=== PATIENT | female | born 1995 | race Caucasian/White ===

== ENCOUNTER 2017-08-15 00:34 | Emergency (ER) | payer SELFPAY ==
[2017-08-15 00:50] VITALS: BP 117/72; PULSE 70; TEMP 98.4; BMI 26.3
--- NOTE | 2017-08-15 00:56 | PDOC ---
History of Present Illness - General Chief Complaint: Vaginal Sxs Stated Complaint: VAGINAL DISCHARGE Time Seen by Provider: 08/15/17 00:38 History Source: Patient Exam Limitations: No Limitations - History of Present Illness Initial Comments: 08/15/17 00:52 This is a 22-year-old female who comes in complaining that she is having some vaginal spotting. Patient said that her period began several days ago with normal finishing at this time however she had some heavy bleeding this morning and her IUD came out. Patient said throughout the day she's had some lower abdominal cramping that is similar to period type cramping and some vaginal spotting. Patient is 1 para 1. Patient is otherwise healthy and denies any other complaints. PAST MEDICAL HISTORY: no significant history PAST SURGICAL HISTORY: no significant history FAMILY HISTORY: no pertinant history SOCIAL HISTORY: Pt lives with family and is employed. MEDICATIONS: reviewed ALLERGIES: As per nursing notes Review of Systems General: No fevers or chills, no weakness, no weight loss HEENT: No change in vision. No sore throat,. No ear pain CardioVascular: No chest pain or shortness of breath Respiratory:No cough, or wheezing. Gastrointestinal: no nausea, vomitting, diarrhea or constipation, No rectal bleeding Genitourinary: No dysuria, hematuria, or frequency Musculoskeletal: No joint or muscle pain or swelling Neurologic: No headache, vertigo, dizziness or loss of consciousness Psychiatric: nor depression Skin: No rashes or easy bruising Endocrine: no increased thirst or abnormal weight change Allergic: no skin or latex allergy All other systems reviewed and normal Exam: General: Well-nourished well-developed individual, no acute distress HEENT: Throat: Normal, tonsils normal, no erythema or exudate Neck: Supple, no meningeal signs, no lymphadenopathy Eyes::Pupils equal reactive and round, extraocular motion intact Abdomen: Soft, nondistended, normal bowel sounds, nontender to palpation diffusely Pelvic: There is a small amount of blood in the vaginal vault there is no cervical motion tenderness, there is no adnexal fullness or tenderness. Os is closed and there is minimal bleeding from the os. Extremities: Warm, dry, no cyanosis, clubbing, or edema Skin: No rashes Neuro: Alert and oriented x3, CN II - XII intact, nonfocal exam with normal strength, normal sensation, normal reflexes, normal gait, Psych: Normal mood and affect Urine test positive Patient had an ultrasound that showed no gestational sac some blood in the uterus some thickened endometrium. Possibilities included missed , very early . Assessment and plan: This is a 22-year-old female who comes in complaining of vaginal spotting and her IUD came out along with some material appearing to be tissue and blood clots. Patient test was positive. Patient had an ultrasound that showed missed versus very early . Patient's beta hCG was 21,000. However they've hCG was not available prior to patient being discharged. Patient was told on discharge and that most likely that the had passed. Patient was also told however there is a very small chance that it could be a very early and that it was important that she call in the morning for the result of her hormone and have it repeated in 2 days to make sure it was going down. Patient discharged home. Will follow-up with her OB doctor on Wednesday to have her beta hCG repeated 08/16/17 21:46 Patient's hCG was not available at the time of her discharge so I called her at home and discussed the hCG result with her. I gave her the normal ranges for hCG and . I reinforced to the patient that it was very important that she follow-up with her OB and make sure that the hormone is going down. I did discuss with her the slim possibility that if the hormone continues to rise that that she could still potentially have a viable . Patient confirmed that she will follow-up with her OB. Past History - Past Medical History Allergies/Adverse Reactions: Allergies Allergy/AdvReac Type Severity Reaction Status Date / Time No Known Allergies Allergy Verified 11/01/15 21:23 Home Medications: Ambulatory Orders NK [No Known Home Medication] 08/15/17 Asthma: Yes COPD: No - Suicide/Smoking/Psychosocial Hx Smoking History: Never smoked Hx Alcohol Use: No Drug/Substance Use Hx: No *Physical Exam - Vital Signs Last Vital Signs Temp Pulse Resp BP Pulse Ox 98.4 F 70 18 117/72 99 08/15/17 00:44 08/15/17 00:44 08/15/17 00:44 08/15/17 00:44 08/15/17 00:44 *DC/Admit/Observation/Transfer Diagnosis at time of Disposition: IUD failure, Pelvic cramping, Complete - Discharge Dispostion Disposition: HOME Condition at time of disposition: Stable Admit: No - Referrals - Patient Instructions Additional Instructions: It is important that you follow-up with an OB next week to make sure your hormone is decreasing. Return to the emergency department immediately with ANY new, persistent or worsening symptoms. Continue any medications as previously prescribed by your physician. You should follow up with your OB doctor as soon as possible regarding today's emergency department visit. . Please make sure your doctor reviews the results of your emergency evaluation. Thank you for coming to the Emergency Department today for your care. It was a pleasure to see you today. Please note that your evaluation is INCOMPLETE until you follow-up with your doctor. - Post Discharge Activity
[2017-08-15 01:24] LABS: URINE APPEARANCE CLEAR; URINE BILIRUBIN NEGATIVE (NEGATIVE); URINE BLOOD 3+ (NEGATIVE); URINE COLOR LT. YELLOW; URINE GLUCOSE (UA) NEGATIVE (NEGATIVE); URINE KETONE NEGATIVE (NEGATIVE); URINE NITRITE NEGATIVE (NEGATIVE); URINE PROTEIN NEGATIVE (NEGATIVE); URINE UROBILINOGEN 0.2 mg/dL (0.2-1.0)
[2017-08-15 01:31] LABS: URINE MUCUS RARE; URINE RBC 6 /hpf (0-3); URINE WBC 1 /hpf (3-5)
[2017-08-15 11:24] LABS: URINE LEUK ESTERASE Negative (NEGATIVE)
== END 2017-08-15 03:07 | disposition home or self-care (01) ==
LOC: FER 00:34
DX: O03.9 Complete or unspecified spontaneous abortion without complication (principal); R10.2 Pelvic and perineal pain; T83.39XA Other mechanical complication of intrauterine contraceptive device, initial encounter; J45.909 Unspecified asthma, uncomplicated
CPT/HCPCS: 36415; 76801-TC; 81003; 81015; 84702; 84703; 99281-25

== ENCOUNTER 2018-06-10 17:31 | Emergency (ER) | payer OTHER ==
[2018-06-10 17:49] VITALS: BP 108/63; PULSE 66; TEMP 98.5; BMI 26.5
--- NOTE | 2018-06-10 17:49 | PDOC ---
Rapid Medical Evaluation Time Seen by Provider: 06/10/18 17:45 Medical Evaluation: Allergies Allergy/AdvReac Type Severity Reaction Status Date / Time No Known Allergies Allergy Verified 11/01/15 21:23 06/10/18 17:45 I have performed a brief in-person evaluation of the patient The patient presents with a chief complaint of: dog bite to left hand today. Reports bitten by known dog on left 3rd, 4th and 5th finger. Pertinent physical exam findings are: NAD even and unlabored breathing left 3rd 4th and 5th finger swelling, unable to flex to a fist I have ordered the following: urine preg, xray of left hand The patient will proceed to the ED for further evaluation.
--- NOTE | 2018-06-10 18:20 | PDOC ---
History of Present Illness - General Chief Complaint: Bite Stated Complaint: DOGBITE Time Seen by Provider: 06/10/18 17:45 History Source: Patient Exam Limitations: No Limitations - History of Present Illness Initial Comments: CHIEF COMPLAINT: 23 y/o afebrile female with dog bite to left 3rd, 4th and 5th digits. HISTORY OF PRESENT ILLNESS: The patient was bitten by her sister's vadim. She states the dog is UTD on shots, including rabies. The bite happened a few hours ago. She states her 3rd and 4th digits are swollen and are hard to move. She denies fever, streaking. She states she is UTD on tetanus but hasn't had a shot in 5 years. She is concerned because she had a reaction to a shot when she was 3. Vital signs on arrival are within normal limits. REVIEW OF SYSTEMS: GENERAL/CONSTITUTIONAL: No fever/chills. No weakness. No weight change. MUSCULOSKELETAL: +pain with movement of left 3rd and 4th digits. No neck or back pain. SKIN: +dog bites to left 3rd and 4th fingers. NEUROLOGIC: No headache, vertigo, loss of consciousness, or loss of sensation. PHYSICAL EXAM: VITAL_SIGNS: within normal limits GENERAL_APPEARANCE: alert, cooperative, no obvious discomfort. MENTAL_STATUS: speech clear, oriented X 3, responds appropriately to questions. NEURO: motor intact and sensory intact in injured extremity. EXTREMITIES: good pulse in injured extremity. PIP joints of left 3rd and 4th digits edematous, ecchymotic and TTP. Decreased ROM of left 3rd and 4th PIP and DIP joints. bite gallagher to tips of 3rd and 4th digits of left hand. No erythema or streaking. SKIN: warm, dry, good color. Past History - Past Medical History Allergies/Adverse Reactions: Allergies Allergy/AdvReac Type Severity Reaction Status Date / Time No Known Allergies Allergy Verified 11/01/15 21:23 Home Medications: Ambulatory Orders Amox-Tr/K Cl [Augmentin - 875Mg Tablet] 1 tab PO BID #20 tablet 06/10/18 Asthma: Yes COPD: No - Immunization History Immunization Up to Date: Yes - Suicide/Smoking/Psychosocial Hx Smoking History: Never smoked Hx Alcohol Use: No Drug/Substance Use Hx: No *Physical Exam - Vital Signs Last Vital Signs Temp Pulse Resp BP Pulse Ox 98.5 F 66 16 108/63 99 06/10/18 17:46 06/10/18 17:46 06/10/18 17:46 06/10/18 17:46 06/10/18 17:46 Medical Decision Making - Medical Decision Making A/P: 23 y/o afebrile female with dog bites to left 3rd and 4th digits. Plan is as follows: 1. xray left fingers 2. Tetanus Xray left fingers IMPRESSION: Nondisplaced fracture at the base of the fourth mid phalanx with surrounding soft tissue swelling. Gave patient the results Put her finger in a finger splint Sent rx for augmentin to her pharmacy; instructed her to take entire 10 days Instructed her to call Dr. Hall on Wednesday to schedule follow up appointment. The patient verbalizes understanding of all instructions, has no further questions and is awaiting discharge. *DC/Admit/Observation/Transfer Diagnosis at time of Disposition: Dog bite of extremity - Discharge Dispostion Condition at time of disposition: Improved - Prescriptions Prescriptions: Amox-Tr/K Cl [Augmentin - 875Mg Tablet] 1 tab PO BID #20 tablet - Referrals Referrals: Leonela Dong [Primary Care Provider] - Can Hall MD [Staff Physician] - 3 days - Patient Instructions Printed Discharge Instructions: DI for Animal Bites, DI for Finger Fracture, How To Perform RICE (Rest, Ice, Compress, Elevate) Additional Instructions: Discharge Instructions: -You have a small broken bone in your finger -Please use the finger splint until follow up with Orthopedic doctor -Call Dr. Hall on Wednesday to schedule follow up appointment -A prescription for antibiotics has been sent to your pharmacy; please take entire 10 days -Apply ice to affected finger -Return to the ER with any worsening or concerning symptoms - Post Discharge Activity
[2018-06-10] MEDS ORDERED: DIPHTH,PERTUSS(ACELL),TET 0.5 ML DISP.SYRIN IM ONE (18:35)
== END 2018-06-10 19:15 | disposition home or self-care (01) ==
LOC: JERFT 17:31
PROC: 3E0234Z Introduction of Serum, Toxoid and Vaccine into Muscle, Percutaneous Approach (ICD-10-PCS; principal; 2018-06-10)
DX: S61.255A Open bite of left ring finger without damage to nail, initial encounter (principal); S61.253A Open bite of left middle finger without damage to nail, initial encounter; X58.XXXA Exposure to other specified factors, initial encounter; Y93.89 Activity, other specified; Y92.9 Unspecified place or not applicable
CPT/HCPCS: 73130-TC-LR-FY; 90471; 90715; 99281-25

== ENCOUNTER 2019-05-30 02:00 | Inpatient (IN) | payer OTHER ==
[2019-05-30 04:32] LABS: HEMOGLOBIN 12.2 GM/dL (10.7-15.3); MCH 30.3 pg (25.7-33.7)
[2019-05-30 04:33] VITALS: BMI 31.4
[2019-05-30 04:39] LABS: BASO % 0.5 % (0-2.0); EOS % 5.4 % (0-4.5); HEMATOCRIT 36.8 % (32.4-45.2); LYMPH % 28.7 % (8-40); MCHC 33.1 g/dl (32.0-36.0); MEAN CELL VOLUME 91.3 fl (80-96); MEAN PLT VOLUME 8.6 fl (7.5-11.1); NEUT % 58.4 % (42.8-82.8); PLATELET COUNT 224 K/MM3 (134-434); RBC 4.03 M/mm3 (3.60-5.2); RDW 14.5 % (11.6-15.6); WHITE BLOOD COUNT 10.7 K/mm3 (4.0-10.0)
[2019-05-30 04:42] LABS: INR 0.99 (0.83-1.09); PROTHROMBIN TIME (PATIENT) 11.7 SEC (9.7-13.0)
[2019-05-30 04:44] LABS: ACTIVATED PTT 29.9 SECONDS (25.2-36.5)
[2019-05-30 04:49] LABS: BLOOD UREA NITROGEN 10.8 mg/dL (7-18); CALCIUM 9.1 mg/dL (8.5-10.1); CREATININE 0.5 mg/dL (0.55-1.3); POTASSIUM 4.2 mmol/L (3.5-5.1)
[2019-05-30] MEDS ORDERED: AMPICILLIN - 2 GM in SODIUM CHLORIDE 100 ML IVPB ONE ×2 (05:30→08:00)
[2019-05-30] MEDS ORDERED: ELECTROLYTE-148 SOLN 1,000 ML IV SCH ×2 (05:30→11:15)
[2019-05-30] MEDS ORDERED: AMPICILLIN SODIUM 2 GM VIAL ONE (07:44)
[2019-05-30] MEDS: DEXTROSE 5%-LACTATED RINGERS 1,000 ML IV SCH ×2 (08:00→16:53)
[2019-05-30] MEDS ORDERED: AMPICILLIN - 1 GM in SODIUM CHLORIDE 100 ML IVPB SCH ×2 (08:00→09:30)
[2019-05-30] MEDS ORDERED: PROMETHAZINE HCL 25 MG/1 ML VIAL IVPUSH ONE (11:12)
[2019-05-30] MEDS ORDERED: BUTORPHANOL TARTRATE 1 MG/ML VIAL IVPB ONE (11:12)
--- NOTE | 2019-05-30 11:12 | HP ---
Past Medical History - Primary Care Physician PCP:: Sabine Pizano - Admission Chief Complaint: Prodromal labor. 41.3 weeks History of Present Illness: 24 yo ed c 05/20 ega 41.3 week + GBS hx of , spontaneous ABx 2 ectopic admitted last night due to prodromal labor and for induction History Source: Patient Limitations to Obtaining History: No Limitations - Past Medical History ...: 6 ...Para: 1 ...Term: 1 ...Spon : 3 ...LMP: 08/13/18 ... Weeks Gestation by Dates: 40.2 ...EDC by Dates: 05/20/19 ...EDC by Sono: 05/20/19 - Past Surgical History Past Surgical History: Yes: None Hx Myomectomy: No Hx Transabdominal Cerclage: No - Smoking History Smoking history: Never smoked - Alcohol/Substance Use Hx Alcohol Use: No History of Substance Use: reports: None Home Medications - Allergies Allergies/Adverse Reactions: Allergies Allergy/AdvReac Type Severity Reaction Status Date / Time No Known Allergies Allergy Verified 11/01/15 21:23 - Home Medications Home Medications: Ambulatory Orders Amox-Tr/K Cl [Augmentin - 875Mg Tablet] 1 tab PO BID #20 tablet 06/10/18 19 Tablet 1 tab PO DAILY 05/30/19 Physical Exam - Maternity Vital Signs: Vital Signs Temperature 97.7 F 05/30/19 10:00 Pulse Rate 72 05/30/19 11:00 Respiratory Rate 18 05/30/19 11:00 Blood Pressure 112/59 L 05/30/19 11:00 O2 Sat by Pulse Oximetry (%) - Labs Lab Results: CBC, BMP 05/30/19 04:05 05/30/19 04:05 Hemorrhage Risk Assessment - Risk Factors Risk Score: 0 Risk Level: Low Risk Problem List - Problems (1) GBS (group B Streptococcus carrier), +RV culture, currently Code(s): O99.820 - STREPTOCOCCUS B CARRIER STATE COMPLICATING (2) 41 weeks gestation of Code(s): Z3A.41 - 41 WEEKS GESTATION OF Assessment/Plan GBS positive Cat 1 41.3 weeks postdates Plan continue present management ambulate
[2019-05-30] MEDS ORDERED: AMPICILLIN SODIUM 1 GM VIAL ONE ×3 (11:24→22:55)
[2019-05-30] MEDS: AMPICILLIN - 1 GM in SODIUM CHLORIDE 100 ML IVPB SCH ×3 (12:00→20:00)
--- NOTE | 2019-05-30 22:28 | PN ---
Ante-Partal Exam - Subjective Vital Signs: Vital Signs Temperature 98.1 F 05/30/19 18:15 Pulse Rate 84 05/30/19 18:15 Respiratory Rate 18 05/30/19 18:15 Blood Pressure 113/65 05/30/19 18:15 O2 Sat by Pulse Oximetry (%) Bleeding: No Headache: No Visual changes: No Right upper quadrant pain: No - Contractions Contractions: Yes Regularity: Irregular Monitor Mode: External - Exam during Labor Variability: Moderate Category: I Monitor Decelerations: None Exam: Vaginal Amniotic Membrane Status: Intact Presentation: Vertex - Intrapartum Hemorrhage Risk Risk Score: 0 Risk Level: Low Risk - Assessment/Plan Assessment/Plan: 41.3 weeks Cat 1 Plan continue present management
--- NOTE | 2019-05-30 22:59 | LDN ---
Oxytocin Pre-Use Checklist Date and Time completed: 05/30/19 0114 Physician order on chart: Yes Current history and physical on chart: Yes Indication for induction is documented: Yes record on chart: Yes Pelvis is documented by physician to be clinically adequate: Yes Estimated weight within past week (clinical or sono): Less than 4500 grams in a non-diabetic woman Gestational age is documented: Yes Consent signed: Yes Status of the cervix is assessed and documented: Yes Presentation is assessed and documented: Yes Assessment completed and includes: A minimum of 30 minutes of monitoring is required prior to start, At least 2 accelerations (15bpm x 15sec) in 30 minutes are present, Adequate variability
[2019-05-30] MEDS ORDERED: OXYTOCIN 30 UNITS in 0.9% NS 30 UNIT/500 ML INFUS.BAG IVPB SCH (23:00)
[2019-05-31] MEDS ORDERED: BUTORPHANOL TARTRATE 1 MG/ML VIAL ONE ×2 (03:03)
[2019-05-31] MEDS ORDERED: PROMETHAZINE HCL 25 MG/1 ML VIAL ONE (03:04)
[2019-05-31] MEDS: AMPICILLIN - 1 GM in SODIUM CHLORIDE 100 ML IVPB SCH ×3 (04:00→10:56)
[2019-05-31] MEDS ORDERED: AMPICILLIN SODIUM 1 GM VIAL ONE (04:04)
[2019-05-31] MEDS ORDERED: FENTANYL/BUPIVACAINE/NS/PF - PCEA - 50 ML DISP.SYRIN EP ONE (05:42)
[2019-05-31] MEDS ORDERED: NALOXONE HCL 0.4 MG/ML VIAL IVPUSH PRN (05:43)
[2019-05-31] MEDS ORDERED: FENTANYL/BUPIVACAINE/NS/PF - PCEA - 50 ML DISP.SYRIN EP SCH (05:45)
[2019-05-31] MEDS ORDERED: OXYTOCIN 20 UNITS in 0.9% NS 20 UNIT/1,000 ML INFUS.BAG IV ONE ×2 (06:28→08:01)
[2019-05-31] MEDS ORDERED: OXYTOCIN 20 UNITS in 0.9% NS 20 UNIT/1,000 ML INFUS.BAG IV SCH ×2 (06:40→09:45)
--- NOTE | 2019-05-31 07:05 | PN ---
Ante-Partal Exam - Subjective Subjective: Pt doing well Vital Signs: Vital Signs Temperature 98.4 F 05/31/19 04:00 Pulse Rate 80 05/31/19 04:00 Respiratory Rate 18 05/31/19 04:00 Blood Pressure 128/68 05/31/19 04:00 O2 Sat by Pulse Oximetry (%) Bleeding: No Headache: No Visual changes: No Right upper quadrant pain: No - Contractions Contractions: Yes Regularity: Regular - Exam during Labor Variability: Moderate Heart Rate Location: [facility] Category: I Monitor Accelerations: Present Monitor Decelerations: None Exam: Vaginal Presentation: Vertex - Assessment/Plan Assessment/Plan: IUP at 39 week Insulin dependent DM Cat1 Pitocin on 2 mu Plan Pitocin augmentation
[2019-05-31] MEDS ORDERED: WITCH HAZEL 50% (TUCKS) 40 PAD/JAR PAD TP PRN (09:32)
[2019-05-31] MEDS ORDERED: BISACODYL 10 MG SUPP.RECT RC PRN (09:32)
[2019-05-31] MEDS ORDERED: BENZOCAINE 28 GM HEMORRHOIDAL OINTMENT TP PRN (09:32)
[2019-05-31] MEDS ORDERED: METHYLERGONOVINE MALEATE 0.2 MG/1 ML AMP IM PRN (09:32)
[2019-05-31] MEDS ORDERED: BENZOCAINE 20% 57 GM BOTTLE TP PRN (09:32)
[2019-05-31] MEDS: DEXTROSE 5%-LACTATED RINGERS 1,000 ML IV SCH (10:56)
[2019-05-31] MEDS: PRENATAL VITAMINS W/ FOLIC ACID TABLET (FP) PO SCH (11:18)
[2019-05-31] MEDS: IBUPROFEN 600 MG TABLET (FP) PO PRN ×2 (14:08→20:31)
[2019-05-31] MEDS: ACETAMINOPHEN 325 MG TABLET (FP) PO PRN ×2 (14:09→20:31)
[2019-06-01] MEDS: ACETAMINOPHEN 325 MG TABLET (FP) PO PRN ×3 (01:42→20:34)
[2019-06-01] MEDS: IBUPROFEN 600 MG TABLET (FP) PO PRN ×3 (01:42→20:34)
[2019-06-01 07:43] LABS: BASO % 0.4 % (0-2.0); EOS % 5.8 % (0-4.5); HEMATOCRIT 30.6 % (32.4-45.2); HEMOGLOBIN 10.1 GM/dL (10.7-15.3); LYMPH % 32.9 % (8-40); MCH 30.3 pg (25.7-33.7); MCHC 32.9 g/dl (32.0-36.0); MEAN PLT VOLUME 7.7 fl (7.5-11.1); MONO % 6.9 % (3.8-10.2); PLATELET COUNT 185 K/MM3 (134-434); RBC 3.32 M/mm3 (3.60-5.2); RDW 14.3 % (11.6-15.6)
[2019-06-01] MEDS: PRENATAL VITAMINS W/ FOLIC ACID TABLET (FP) PO SCH (09:29)
--- NOTE | 2019-06-01 09:33 | PN ---
Post Progress Note - Subjective Subjective: Pt seen/examined and doing well. No complaints. Type of Delivery: Vital Signs: Vital Signs Temperature 97.7 F 06/01/19 06:00 Pulse Rate 82 06/01/19 06:00 Respiratory Rate 18 06/01/19 06:00 Blood Pressure 117/66 06/01/19 06:00 O2 Sat by Pulse Oximetry (%) Uterus: Yes: Fundus Firm Abdomen/GI: Yes: Abdomen soft, Tolerating PO Lochia: Yes: Rubra Lochia, amount: Small Extremities: Yes: Calves non-tender. No: Edema Perineum: Yes: Laceration Activity: Ambulating - Labs Labs: CBC WBC 12.0 K/mm3 (4.0-10.0) H 06/01/19 07:17 RBC 3.32 M/mm3 (3.60-5.2) L 06/01/19 07:17 Hgb 10.1 GM/dL (10.7-15.3) L 06/01/19 07:17 Hct 30.6 % (32.4-45.2) L D 06/01/19 07:17 MCV 92.0 fl (80-96) 06/01/19 07:17 MCH 30.3 pg (25.7-33.7) 06/01/19 07:17 MCHC 32.9 g/dl (32.0-36.0) 06/01/19 07:17 RDW 14.3 % (11.6-15.6) 06/01/19 07:17 Plt Count 185 K/MM3 (134-434) 06/01/19 07:17 MPV 7.7 fl (7.5-11.1) D 06/01/19 07:17 Absolute Neuts (auto) 6.5 K/mm3 (1.5-8.0) 06/01/19 07:17 Neutrophils % 54.0 % (42.8-82.8) 06/01/19 07:17 Lymphocytes % 32.9 % (8-40) 06/01/19 07:17 Monocytes % 6.9 % (3.8-10.2) 06/01/19 07:17 Eosinophils % 5.8 % (0-4.5) H 06/01/19 07:17 Basophils % 0.4 % (0-2.0) 06/01/19 07:17 Nucleated RBC % 0 % (0-0) 06/01/19 07:17 Problem List - Problems (1) Vaginal delivery Code(s): O80 - ENCOUNTER FOR FULL-TERM UNCOMPLICATED DELIVERY (2) Anemia Code(s): D64.9 - ANEMIA, UNSPECIFIED Assessment/Plan 24 y/o PPD#1 s/p normal regular diet anemia, continue PNVs OOB routine care
--- NOTE | 2019-06-01 10:49 | PN ---
Delivery - Delivery Vaginal Delivery: No Problems Type of Anesthesia: None Episiotomy/Laceration: None EBL (cc): 300 Delivery, Single - Stages of Labor Date 1st Stage Initiatied: 05/30/19 Time 1st Stage Initiated: 21:00 Date 2nd Stage Initiated: 05/31/19 Time 2nd Stage Initiated: 06:20 Date of Delivery: 05/31/19 Time of Delivery: 06:34 Time Placenta Delivered: 06:40 - Condition of Infant Inside Sales Specialist/Epic Cadence Analyst Present: [place]: Arturo Granger Infant Gender: Male Weight: 8 lb 2 oz Position: OA Total Hours ROM (Hrs/Mins): 7mins - 1 Minute Total Score: 7 5 Minutes Total Score: 9 - [place] Feeding Plan Initial Plan: Elected not to breastfeed exclusively throughout hospitalization
[2019-06-01] MEDS ORDERED: SENNOSIDES/DOCUSATE COMBO (SENNA PLUS) TABLET (UD) PO PRN (22:00)
[2019-06-02] MEDS: ACETAMINOPHEN 325 MG TABLET (FP) PO PRN (02:18)
[2019-06-02] MEDS: IBUPROFEN 600 MG TABLET (FP) PO PRN (02:18)
[2019-06-02] MEDS: PRENATAL VITAMINS W/ FOLIC ACID TABLET (FP) PO SCH (09:21)
[2019-06-02 09:40] VITALS: BP 119/79; PULSE 83; TEMP 98.1
== END 2019-06-02 12:45 | disposition home or self-care (01) | DRG 560 ==
LOC: JLDR 02:00 → J3W 05-31 09:09
PROVIDERS: ADMIT Obstetrics & Gynecology; ATTEND Obstetrics & Gynecology
PROC: 10E0XZZ Delivery of Products of Conception, External Approach (ICD-10-PCS; principal; 2019-05-31)
DX: O48.0 Post-term pregnancy (principal); O69.81X0 Labor and delivery complicated by cord around neck, without compression, not applicable or unspecified; O99.824 Streptococcus B carrier state complicating childbirth; O90.81 Anemia of the puerperium; Z3A.41 41 weeks gestation of pregnancy; Z37.0 Single live birth
CPT/HCPCS: 36415; 36600; 59409; 80048; 82803; 85025; 85610; 85730; 86593; 86850; 86900; 86901

== ENCOUNTER 2023-03-02 14:12 | Inpatient (IN) | payer OTHER ==
[2023-03-02 15:38] VITALS: BMI 32.8
[2023-03-02] MEDS ORDERED: BUTORPHANOL TARTRATE 1 MG/ML VIAL IVPB PRN (15:51)
[2023-03-02] MEDS ORDERED: PROMETHAZINE HCL 25 MG/1 ML VIAL IVPB ONE (15:51)
[2023-03-02] MEDS ORDERED: ELECTROLYTE-148 SOLN 1,000 ML IV SCH (16:00)
[2023-03-02] MEDS ORDERED: OXYTOCIN 30 UNITS in 0.9% NS 30 UNIT/500 ML INFUS.BAG IVPB SCH (16:00)
[2023-03-02] MEDS ORDERED: OXYTOCIN 30 UNITS in 0.9% NS 30 UNIT/500 ML INFUS.BAG IVPB ONE (16:23)
[2023-03-02 17:34] LABS: BASO % 0.2 % (0-2.0); EOS % 2.4 % (0-4.5); HEMATOCRIT 29.6 % (32.4-45.2); HEMOGLOBIN 9.4 GM/dL (10.7-15.3); LYMPH % 22.1 % (8-40); MCH 24.1 pg (25.7-33.7); MCHC 31.9 g/dl (32.0-36.0); MEAN CELL VOLUME 75.4 fl (80-96); MEAN PLT VOLUME 7.9 fl (7.5-11.1); MONO % 6.9 % (3.8-10.2); NEUT % 68.4 % (42.8-82.8); PLATELET COUNT 219 10^3/uL (134-434); RBC 3.93 M/mm3 (3.60-5.2); RDW 17.4 % (11.6-15.6)
[2023-03-02 17:41] LABS: INR 0.98 (0.83-1.09); PROTHROMBIN TIME (PATIENT) 11.4 SEC (9.7-13.0)
[2023-03-02 17:43] LABS: ACTIVATED PTT 26.3 SECONDS (25.2-36.5)
[2023-03-02 17:53] LABS: POTASSIUM 4.1 mmol/L (3.5-5.1)
[2023-03-02 17:54] LABS: BLOOD UREA NITROGEN 8.6 mg/dL (7-18); CALCIUM 8.6 mg/dL (8.5-10.1)
[2023-03-02 17:58] LABS: CREATININE 0.5 mg/dL (0.55-1.3)
[2023-03-02] MEDS ORDERED: BUTORPHANOL TARTRATE 1 MG/ML VIAL ONE (20:01)
[2023-03-02] MEDS ORDERED: PROMETHAZINE HCL 25 MG/1 ML VIAL ONE (20:01)
[2023-03-02] MEDS ORDERED: OXYTOCIN 20 UNITS in 0.9% NS 20 UNIT/1,000 ML INFUS.BAG IV ONE (21:41)
[2023-03-02] MEDS ORDERED: LIDOCAINE HCL 1% PRESERVATIVE FREE - 30ML VIAL ONE (21:41)
[2023-03-02] MEDS ORDERED: BISACODYL 10 MG SUPP.RECT RC PRN (23:06)
[2023-03-02] MEDS ORDERED: WITCH HAZEL 50% (TUCKS) 40 PAD/JAR PAD TP PRN (23:06)
[2023-03-02] MEDS ORDERED: BENZOCAINE 20% 57 GM BOTTLE TP PRN (23:06)
[2023-03-02] MEDS ORDERED: oxyCODONE HCL 5 MG TABLET PO PRN (23:06)
[2023-03-02] MEDS ORDERED: BENZOCAINE 28 GM HEMORRHOIDAL OINTMENT TP PRN (23:06)
[2023-03-02] MEDS ORDERED: METHYLERGONOVINE MALEATE 0.2 MG/1 ML AMP IM PRN (23:06)
[2023-03-02] MEDS ORDERED: OXYTOCIN 20 UNITS in 0.9% NS 20 UNIT/1,000 ML INFUS.BAG IV SCH (23:15)
[2023-03-02 23:55] LABS: CORD BASE EXCESS -5.8 mmol/L (0-2); CORD HCO3 18.9 mmHg (20-29); CORD PCO2 35.7 mmHg (30-78); CORD pH 7.342 (7.14-7.44)
[2023-03-03] MEDS: ACETAMINOPHEN 325 MG TABLET (FP) PO PRN ×2 (01:25→05:34)
[2023-03-03 01:33] VITALS: RESP 18
[2023-03-03] MEDS: IBUPROFEN 600 MG TABLET (FP) PO PRN ×3 (02:44→22:00)
[2023-03-03] MEDS: FERROUS SO4 325 MG TABLET (FP) PO SCH ×3 (08:28→17:57)
[2023-03-03] MEDS: PRENATAL VITAMINS W/ FOLIC ACID TABLET (FP) PO SCH (09:39)
[2023-03-03 10:38] LABS: BASO % 0.2 % (0-2.0); EOS % 0.9 % (0-4.5); HEMATOCRIT 27.1 % (32.4-45.2); HEMOGLOBIN 8.5 GM/dL (10.7-15.3); LYMPH % 20.8 % (8-40); MCH 24.3 pg (25.7-33.7); MCHC 31.4 g/dl (32.0-36.0); MEAN CELL VOLUME 77.4 fl (80-96); MEAN PLT VOLUME 8.5 fl (7.5-11.1); MONO % 4.4 % (3.8-10.2); NEUT % 73.7 % (42.8-82.8); PLATELET COUNT 204 10^3/uL (134-434); RDW 17.9 % (11.6-15.6); WHITE BLOOD COUNT 12.6 K/mm3 (4.0-10.0)
[2023-03-03] MEDS ORDERED: SENNOSIDES/DOCUSATE COMBO (SENNA PLUS) TABLET (UD) PO PRN (22:00)
[2023-03-04] MEDS: FERROUS SO4 325 MG TABLET (FP) PO SCH ×2 (08:57→12:05)
[2023-03-04] MEDS: IBUPROFEN 600 MG TABLET (FP) PO PRN (08:57)
[2023-03-04 09:44] VITALS: BP 100/64; PULSE 70; TEMP 97.2
[2023-03-04] MEDS: PRENATAL VITAMINS W/ FOLIC ACID TABLET (FP) PO SCH (10:08)
== END 2023-03-04 13:36 | disposition home or self-care (01) | DRG 560 ==
LOC: JLDR 14:12 → J3W 03-03 01:25
PROVIDERS: ADMIT Obstetrics & Gynecology; ATTEND Obstetrics & Gynecology
PROC: 10E0XZZ Delivery of Products of Conception, External Approach (ICD-10-PCS; principal; 2023-03-02)
PROC: 3E033VJ Introduction of Other Hormone into Peripheral Vein, Percutaneous Approach (ICD-10-PCS; 2023-03-02)
DX: O41.03X0 Oligohydramnios, third trimester, not applicable or unspecified (principal); O48.0 Post-term pregnancy; O99.214 Obesity complicating childbirth; E66.9 Obesity, unspecified; Z3A.41 41 weeks gestation of pregnancy; Z37.0 Single live birth
CPT/HCPCS: 36415; 36600; 80048; 82803; 85025; 85610; 85730; 86780; 86850; 86900; 86901